=== PATIENT | male | born 1970 | race Caucasian/White ===

== ENCOUNTER 2020-08-03 06:33 | Emergency (ER) | payer OTHER ==
[~2020-08-03] VITALS: Ht 175.3 cm; Wt 105.2 kg
[2020-08-03] MEDS ORDERED: GLUCOPHAGE XR500 MG PO (07:00)
[2020-08-03] MEDS ORDERED: TRADJENTA5 MG PO ×2 (07:01→07:03)
[2020-08-03] MEDS ORDERED: JARDIANCE10 MG PO (07:04)
--- NOTE | 2020-08-03 10:41 | EKG ---
[facility] [address] [facility] [place] [address] Signed Normal sinus rhythm Left axis deviation Nonspecific T wave abnormality Abnormal ECG No previous ECGs available Confirmed by JAIME HERNANDEZ MD ([id number]) on 08/03/2020 10:41:16 AM Electronically Signed By: JAIME HERNANDEZ MD 08/03/20 1041 PATIENT NAME: DEVIKA HAND WILIAM Electrocardiogram DATE OF : 68 PHYSICIAN: JAIME HERNANDEZ MD REPORT #: [id number] REPORT IS CONFIDENTIAL AND NOT TO BE RELEASED WITHOUT AUTHORIZATION
== END 2020-08-03 09:55 | disposition home or self-care (01) ==
LOC: ED 06:33
DX: E11.65 Type 2 diabetes mellitus with hyperglycemia (principal); R55 Syncope and collapse; E86.0 Dehydration; Z88.1 Allergy status to other antibiotic agents; Z79.84 Long term (current) use of oral hypoglycemic drugs; Z79.899 Other long term (current) drug therapy
CPT/HCPCS: 80053; 81001; 83735; 84443; 84484; 85025; 93005; 93010; 99285-25